=== PATIENT | female | born 1955 | race Two or more races ===

== ENCOUNTER 2019-01-17 21:17 | Inpatient (IN) | payer MEDICARE ==
[~2019-01-17] VITALS: Ht 165.1 cm; Wt 54.4 kg
--- NOTE | 2019-01-17 23:45 | NUR ---
ADMITTED THIS 63 YEARS OLD FEMALE FROM [facility] PATIENT WAS PLACED ON 5150 HOLD DUE TO OVER DOSE OF NARCO, PSYCHOSIS,NOS, UPON FACE TO FACE ASSESSMENT PATIENT DENIES ANY SI/HI AT THIS TIME, PATIENT IS UNDER CARE OF DR. HALE, AND SILVIA RUTH. PATIENT SIGN THE CONSENT PAPER ADVISEMENT EXPLAIN AND SERVE TO THE PATIENT WITH HOSPITAL POLICY BOOK AND MEDICATION BOOK. BODY ASSESSMENT IS DONE, SKIN IS INTACT AND PATENT NO OPEN WOUND OR BRUISES NOTED, NO BEHAVIOUR PROBLEM NOTED AT THIS TIME ALL NEEDS MET WILL CONTINUES TO MONITOR THE PATIENT EVERY 15 MINS FOR SAFETY AND FALL AND ENDORSE TO THE ONCOMING NURSE TO CONTINUES TO MONITOR THE PATIENT
[2019-01-18] MEDS ORDERED: ZOLPIDEM TARTRATE 5 MG TABLET PO PRN (00:30)
[2019-01-18] MEDS ORDERED: BLOOD SUGAR DIAGNOSTIC 1 EACH STRIP IN ONE (00:30)
[2019-01-18] MEDS ORDERED: MAGNESIUM HYDROXIDE 30 ML UDC PO PRN (00:30)
[2019-01-18] MEDS ORDERED: MAG HYDROX/AL HYDROX/SIMETH 30 ML UDC PO PRN (00:30)
[2019-01-18] MEDS ORDERED: TEMAZEPAM 7.5 MG CAPSULE PO PRN (00:30)
[2019-01-18] MEDS ORDERED: ACETAMINOPHEN 325 MG TABLET PO PRN (00:30)
[2019-01-18 08:00] VITALS: BP 144/72
[2019-01-18 08:01] LABS: ALBUMIN 3.7 g/dL (3.4-5.0); BILIRUBIN,TOTAL 0.9 mg/dL (0.2-1.0); CALCIUM, SERUM 8.5 mg/dL (8.5-10.1); CREATININE 0.8 mg/dL (0.6-1.3); POTASSIUM 4.5 mmol/L (3.5-5.1); TOTAL PROTEIN, SERUM 6.7 g/dL (6.4-8.2)
[2019-01-18] MEDS ORDERED: LATA2.5D7 OP (08:57)
[2019-01-18] MEDS ORDERED: LORAZEPAM 1 MG TABLET PO PRN (10:00)
[2019-01-18 13:28] LABS: THYROID STIMULATING HORMONE 2.3 uIU/mL (0.358-3.74)
--- NOTE | 2019-01-18 13:52 | NUR ---
SW called Maya Mccarntey ([phone]), the pts hearing impaired itinerant teacher, and left a voicemail stating that the SW would like to discuss the pts treatment plan and initial discharge plan.
[2019-01-18 16:00] VITALS: BP 100/60
[2019-01-18] MEDS: VENLAFAXINE XR 37.5 MG CAP.SR.24H PO SCH (16:00)
--- NOTE | 2019-01-18 19:00 | NUR ---
RN NOTE CALL MADE TO RELAY RESULT OF US THYROID O ,TOLD WILL LOOK AT THE RESULT.OK TO ORDER LATANOPROST EYE DROPS.PATIENT MADE AWARE.
[2019-01-18 20:46] VITALS: BP 92/59
[2019-01-18] MEDS: LATANOPROST EYE DROP 0.005% 2.5 ML BOTTLE EACHEYE SCH (20:54)
[2019-01-19 08:00] VITALS: BP 101/64
--- NOTE | 2019-01-19 08:48 | NUR ---
SW returned the voicemail of Maya Mccartney ([phone]), the pts nurse wound, and discussed the pts discharge plan. SW discussed the pt returning home with psychiatrist and outpatient aftercare referrals. It was discussed that the pts son will not be involved in the treatment planning due to the pt not wanting to stress him out due to personal reasons.
[2019-01-19 09:14] LABS: CHOLESTEROL 213 mg/dL (<200); HDL CHOLESTEROL 48 mg/dL (40-60); LDL 147 mg/dL (0-99); TRIGLYCERIDES 81 mg/dL (30-150)
--- NOTE | 2019-01-19 10:20 | NUR ---
Initial Discharge Plan: Pt currently resides at her home located at [address] [place] [address]; ([phone]). Per pt, she would like to return to her home. SW will work with the pt and the MD regarding appropriate discharge planning. SW will form a safe and proper discharge.
[2019-01-19] MEDS: VENLAFAXINE XR 37.5 MG CAP.SR.24H PO SCH (10:52)
--- NOTE | 2019-01-19 10:52 | NUR ---
Patient refuses venelex because of glaucoma she says she was diagnosed with at the [facility]. For now she refuses her tylenol for headache pain, says she almost overdosed on it with the [place]. Jose Hayden RN
[2019-01-19] MEDS: CITALOPRAM HYDROBROMIDE 20 MG TABLET PO SCH (12:15)
--- NOTE | 2019-01-19 14:37 | NUR ---
NYDIA called the pts son, Geoffrey ([phone]), and he stated that he would arrive to slate picker the pt around 1pm the following day once her hold is up.
--- NOTE | 2019-01-19 14:42 | NUR ---
NYDIA called Maya Mccartney ([phone]), the pts fitter hand, and left her a voicemail that informed her that the pt will be discharged tomorrow and that she will get picked up by her son.
--- NOTE | 2019-01-19 14:45 | NUR ---
NYDIA conducted a substance abuse intervention for the pt regarding her overdose attempt with [place] with one bottle of wine.
[2019-01-19 16:00] VITALS: BP 100/65
[2019-01-19 20:17] VITALS: BP 113/69
[2019-01-19] MEDS: LATANOPROST EYE DROP 0.005% 2.5 ML BOTTLE EACHEYE SCH (21:29)
[2019-01-20 08:00] VITALS: BP 119/79
[2019-01-20] MEDS: CITALOPRAM HYDROBROMIDE 20 MG TABLET PO SCH (08:32)
--- NOTE | 2019-01-20 10:44 | NUR ---
DR. HALE CAME AND SPOKE TO THE PT. AND GAVE AN ORDER TO D/C AMA. PT. SIGNED THE AMA FORM.
--- NOTE | 2019-01-20 13:00 | NUR ---
Discharge Note: Pt was discharged back home against medical advice (AMA) to [facility] [address], [place] [address]; ([phone]). Pt�s son, Geoffrey ([phone]), picked up the pt around 1pm. Upon discharge, the pt appeared to be in a depressed mood and presented with a distressed affect. Pt denied both suicidal and homicidal ideation as well as auditory and visual hallucinations. Pt was provided with substance abuse referrals as well as psychiatrist referral. Pt will be under the care of psychiatrist, Dr. Eldon Rodas, located at [address] [place] [address]; ; a fax was sent to: . Pt will also continue to be under the care of her pricer, Dr. Miguelina Davey, located at [address] [facility] [address] [address]; .
--- NOTE | 2019-01-20 13:05 | NUR ---
discharged patient AMA in stable condition,denied si/hi, picked up by son, accompanied by primary nurse. instructed to follow up with primary doctor, and continue prescribed medication. dc paperwork and prescription given. all belongings returned and form signed. nameband removed. dr dee aware. rubber tire and tubes supervisor aware.
--- NOTE | 2019-02-04 14:36 | NUR ---
15 Day Substance Abuse Follow Up: Pt is exempt from this follow up because the pt was discharged AMA.
== END 2019-01-20 13:25 | disposition left against medical advice (07) | DRG 885 ==
LOC: GPS 23:44
PROVIDERS: ADMIT Psychiatry & Neurology Psychiatry; ATTEND Internal Medicine
DX: F33.2 Major depressive disorder, recurrent severe without psychotic features (principal); F29 Unspecified psychosis not due to a substance or known physiological condition; I10 Essential (primary) hypertension; E83.51 Hypocalcemia; M81.0 Age-related osteoporosis without current pathological fracture; E04.2 Nontoxic multinodular goiter; T14.91XD Suicide attempt, subsequent encounter
CPT/HCPCS: 36415; 76536-TC; 80053-TC; 80061-TC; 82533; 83970; 84439-TC; 84443-TC; 87081-TC